=== PATIENT | male | born 1945 | race Caucasian/White ===

== ENCOUNTER 2018-08-11 08:05 | Outpatient (CLI) | payer MEDICARE, OTHER ==
[2018-08-11] VITALS (14 sets, daily range): BP systolic 125–172; BP diastolic 69–92
[~2018-08-11] VITALS: Ht 172.7 cm; Wt 64.9 kg
[~2018-08-11 08:05] MED LIST: ACHYD1T PO; CIPR500T78 PO; PHEN200T27 PO; PRAV40TA PO
[2018-08-11 08:40] LABS: HEMOGLOBIN 10.8 G/DL (13.3-17.7); MEAN PLATELET VOLUME 8.7 FL (7.4-10.4); RED BLOOD COUNT 4.18 10^6/uL (4.35-5.85); RED CELL DISTRIBUTION WIDTH 16.6 % (10.0-14.5); WHITE BLOOD COUNT 9.2 10^3/uL (4.3-11.0)
[2018-08-11 09:05] LABS: INR 1.2 (0.8-1.4); PROTHROMBIN TIME PATIENT 15.2 SEC (12.2-14.7)
[2018-08-11] MEDS ORDERED: MIDAZOLAM 2 MG/2 ML (VERSED) VIAL ONE (09:13)
[2018-08-11] MEDS ORDERED: fentaNYL INJECTION 100 MCG/2 ML AMP ONE (09:13)
[2018-08-11] MEDS ORDERED: LIDOCAINE 1% INJ 20 ML 20 ML VIAL ONE (09:22)
[2018-08-11] MEDS ORDERED: NS IV 1000 ML 1,000 ML ONE (09:27)
[2018-08-11] MEDS ORDERED: HYDROcodone/APAP 5 MG/325 MG (LORTAB) TAB PO PRN (10:15)
[2018-08-11] MEDS ORDERED: MIDAZOLAM 2 MG/2 ML (VERSED) VIAL IVP ONE (10:45)
[2018-08-11] MEDS ORDERED: fentaNYL INJECTION 100 MCG/2 ML AMP IVP ONE (10:45)
[2018-08-11] MEDS ORDERED: LIDOCAINE 1% INJ 20 ML 20 ML VIAL INJ ONE (10:45)
--- NOTE | 2018-08-11 12:12 | Diagnostic Imaging Report ---
INDICATION: Right-sided abdominal mass. Patient presents for ultrasound-guided biopsy. PROCEDURE: Patient was brought to the CT suite and placed on table in the supine position. Axial imaging through the abdomen was performed to evaluate appropriate entry site. The procedure was performed utilizing moderate conscious sedation with radiology nursing and constant monitoring. Patient was administered 0.5 mg of Versed intravenously and 25 mcg of fentanyl intravenously. Total procedure time was 11 minutes. The right abdomen was prepped and draped in usual sterile fashion. Small amount of 1% lidocaine was utilized for local anesthesia. An 18-gauge coaxial Temno needle was advanced into the mixed solid and cystic mass in the right abdomen inferior to the right lobe of the liver. Approximately, three core biopsies were obtained. Next, the needle was repositioned slightly more cephalad in the mass and three to four more core biopsies were obtained. The needle was removed and hemostasis was obtained using manual compression. The patient tolerated the procedure well and left the department in stable condition. IMPRESSION: Successful CT-guided core biopsy of the large complex mass in the right abdomen, utilizing conscious sedation. Dictated by: Dictated on workstation # [id number]
--- NOTE | 2018-08-11 13:03 | Pre-Op Note & Conscious Sedat ---
Pre-Operative Progress Note H&P Reviewed The H&P was reviewed, patient examined and no changes noted. Date H&P Reviewed: Aug 11, 2018 Time H&P Reviewed: 08:00 Pre-Op Diagnosis: Adrenal mass Conscious Sedation Pre-Proced Time 08:00 ASA Score 2 For ASA 3 and 4: Consider anesthesia and medical clearance. Also, for patients with a history of failed moderate sedation consider anesthesia. Airway Lungs Heart ASA score ASA 1: a normal healthy patient ASA 2: a patient with a mild systemic disease (mid diabetes, controlled hypertension, obesity ASA 3: a patient with a severe systemic disease that limits activity (angina , COPD, prior Myocardial infarction) ASA 4: a patient with an incapacitating disease that is a constant threat to life (CHF, renal failure) ASA 5: a moribund patient not expected to survive 24 hrs. (ruptured aneurysm) ASA 6: a declared brain patient whose organs are being harvested. For emergent operations, add the letter E after the classification Mallampati Classification Grade 2 Sedation Plan Analgesia, Amnesia, Plan communicated to team members, Discussed options with patient/fam, Discussed risks with patient/fam The patient is an appropriate candidate to undergo the planned procedure, sedation, and anesthesia. The patient immediately re-assessed prior to indication. MORIAH FUENTES MD Aug 11, 2018 13:03
== END 2018-09-06 09:34 | disposition home or self-care (01) ==
LOC: RAD 08:05 → SDC 10:12 → RAD 09-06 09:34
PROVIDERS: ATTEND Nurse Practitioner Family
DX: C74.91 Malignant neoplasm of unspecified part of right adrenal gland (principal); I10 Essential (primary) hypertension; E11.9 Type 2 diabetes mellitus without complications; Z79.84 Long term (current) use of oral hypoglycemic drugs
CPT/HCPCS: 36415; 77012; 85027; 85610; 85730; 88305; 88341; 88342; 99156